=== PATIENT | female | born 1945 | race Caucasian/White ===

== ENCOUNTER 2019-07-07 07:51 | Emergency (ER) | payer MEDICARE, SELFPAY ==
--- NOTE | ~2019-07-07 | CT_ITS ---
EXAMINATION: CT lumbar spine [facility] EXAM DATE: 07/07/2019 08:50 INDICATION: Fall, low back pain. TECHNIQUE: Spiral CT lumbar spine was performed without contrast. Axial, coronal and sagittal images were reviewed. The dose-length product (DLP) for this examination was 1446.43 mGy-cm. The exposure was tailored according to patient size (auto mA exposure control), and iterative reconstruction (ASIR ) was used as additional dose reduction technique. There is no prior study for comparison. FINDINGS: There is mild to moderate loss of the L1 vertebral body height anteriorly, mild loss import coordination and production head iorly, burst fracture without retropulsion which could be acute or have acute component, although no paraspinal soft tissue findings. The other lumbar vertebral body heights are relatively well-maintain ed. There is moderate disc disease L2-3, L4-5 and L5-S1, mild to moderate at L3-4. There is advanced lower lumbar facet arthropathy. Sacrum, sacroiliac joints are intact. Moderate neural foraminal steno sis at lower lumbar levels. IMPRESSION: 1. L1 mild to moderate burst fracture, could have acute or subacute component to it. No retropulsion . 2. Overall moderate lumbar spondylosis. Reviewed, dictated and finalized at location B. AL STAFF WORKER IMPRESSION: 1. L1 mild to moderate burst fracture, could have acute or subacute component to it. No retropulsion. 2. Overall moderate lumbar spondylosis.
--- NOTE | ~2019-07-07 | CT_ITS ---
EXAMINATION: CT brain wo con DATE: 07/07/2019 08:50 INDICATION: Head injury. TECHNIQUE: Computed tomography (CT) of the head was performed without intravenous contrast. The mA wa s adjusted according to patient size. Iterative reconstruction technique was employed. The dose-lengt h product was 605.33 mGy-cm. COMPARISON: Head CT 04/22/2017 FINDINGS: There are old lacunar infarcts involving the right internal capsule and bilateral basal porsha glia. There are scattered areas of low attenuation in the cerebral white matter. There is no intracra nial hemorrhage, acute infarction, or abnormal intracranial mass lesion. The ventricles are normal in size. There is mild mucosal thickening in the paranasal sinuses. The mastoid air cells are normal. T here are likely changes of ocular lens replacement surgeries. IMPRESSION: 1. Old lacunar infarcts involving the right internal capsule and bilateral basal ganglia. 2. Unchanged extensive nonspecific cerebral white matter disease, which likely represents chronic sma ll vessel ischemic disease. Reviewed, dictated and finalized at location A. PILOT/NAVIGATOR/DDS OPERATOR IMPRESSION: 1. Old lacunar infarcts involving the right internal capsule and bilateral basa l ganglia. 2. Unchanged extensive nonspecific cerebral white matter disease, which likely represents chronic small vessel ischemic disease.
[2019-07-07 07:51] VITALS: BP 123/82; PULSE 87; RESP 13; TEMP 36.4; O2SAT 94
--- NOTE | 2019-07-07 08:29 | ED.FALL ---
HPI - Fall General Chief Complaint: Fall <Monika Cross PA-C - Last Filed: 07/07/19 08:33> Stated Complaint: fall <ENRRIQUE Adan Last Filed: 07/07/19 08:33> Time Seen by Provider: 07/07/19 08:08 <Monika Cross PA-C - Last Filed: 07/07/19 08:33> Source: patient <ENRRIQUE Adan Last Filed: 07/07/19 08:33> Mode of arrival: EMS <ENRRIQUE Adan Last Filed: 07/07/19 08:33> Limitations: no limitations <ENRRIQUE Adan Last Filed: 07/07/19 08:33> History of Present Illness HPI Narrative: This is a 73-year-old female that presents the emergency department after a fall today. Reports she was getting up to go to the restroom and lost her balance and fell backwards onto her bottom. Reports since she has had low back pain. Also reports hitting her head on a cabinet. Denies any loss of consciousness. Denies any other injuries. Denies prodromal symptoms, chest pain, shortness of breath, vision changes, vomiting, numbness or weakness. <ENRRIQUE Adan Last Filed: 07/07/19 08:33> Related Data Home Medications: Home Medications Medication Instructions Recorded Confirmed albuterol sulfate 0.63 mg/3 mL 0.63 mg INHALATION Q4-6H PRN 04/12/19 solution for nebulization albuterol sulfate 90 mcg/actuation 1 puff INHALATION Q4H PRN 04/12/19 aerosol inhaler duloxetine 60 mg capsule,delayed 60 mg PO DAILY 04/12/19 release pantoprazole 40 mg tablet,delayed 40 mg PO QAM 04/12/19 release tiotropium bromide 2.5 2 puff INHALATION DAILY 04/12/19 mcg/actuation mist for inhalation azelastine 137 mcg (0.1 %) nasal 1 spray NASAL Q12H 05/10/19 spray aerosol fluticasone furoate 200 1 inhalation INHALATION DAILY 05/10/19 mcg-vilanterol 25 mcg/dose inhalation powder hydrocodone 5 mg-acetaminophen 325 1 tablet PO Q8H PRN 05/10/19 mg tablet zolpidem 10 mg tablet 10 mg PO .QHS tablet 05/10/19 <Monika Cross PA-C - Last Filed: 07/07/19 08:33> Allergies/Adverse Reactions: Allergies Allergy/AdvReac Type Severity Reaction Status Date / Time adhesive Allergy Unknown Unknown Verified 07/07/19 08:01 aspirin Allergy Unknown Unknown Verified 07/07/19 08:01 morphine Allergy Unknown Unknown Verified 07/07/19 08:01 naproxen Allergy Unknown Unknown Verified 07/07/19 08:01 Sulfa (Sulfonamide Allergy Unknown Rash Verified 07/07/19 08:01 Antibiotics) sulfanilamide Allergy Unknown Rash Verified 05/10/19 10:14 aspirin Allergy Unknown Unknown Uncoded 05/10/19 10:14 cilantro Allergy Unknown Unknown Uncoded 07/07/19 08:01 naproxen Allergy Unknown Unknown Uncoded 07/07/19 08:01 <Monika Cross PA-C - Last Filed: 07/07/19 08:33> Review of Systems Review of Systems: Narrative: CONSTITUTIONAL: Denies fever EYES: Denies visual changes CARDIOVASCULAR: Denies chest pain RESPIRATORY: Denies dyspnea. GASTROINTESTINAL: Denies vomiting MUSCULOSKELETAL: Reports back pain, joint pain, and myalgia. NEUROLOGIC: Denies headache, numbness, or weakness. <Monika Cross PA-C - Last Filed: 07/07/19 08:33> All systems reviewed & are unremarkable except as noted in HPI and below <Monika Cross PA-C - Last Filed: 07/07/19 08:33> [facility] Past Medical History Medical History: Medical History (Updated 07/07/19 @ 08:30 by Monika Cross PA-C) History of asthma History of diabetes mellitus History of hyperlipidemia History of hypertension <Monika Cross PA-C - Last Filed: 07/07/19 08:33> Social History Social History: Social History Smoking status: Never smoker Alcohol intake: never Gender identity (if verbalized by the patient): Female <Monika Cross PA-C - Last Filed: 07/07/19 08:33> Exam Narrative: Exam Narrative: GENERAL: Well-appearing, obese, and in no acute distress. HEAD: Normocephalic, atraumatic. EYES: PERRLA and EOMI. ENT: Nares clear, no rhin
--- NOTE | 2019-07-07 09:51 | PCCCNOTE ---
Pt has multiple falls in the recent past and is now in the ED with a burst fracture. Expressed interest in receiving information about Assisted Living facilities in the area. Spoke with patient and son and provided our list of Assisted Living facilities in this area. Patient is also interested in facilities in the [place], [place] area. Suggested patient and son consider what amenities are important to them and to tour facilities of their choice with those amenities in mind.
[2019-07-07 10:28] VITALS: BP 143/99; PULSE 98; RESP 17; O2SAT 96
[2019-07-07 11:56] VITALS: BP 136/57; PULSE 104; RESP 19; O2SAT 94
--- NOTE | 2019-07-07 12:16 | PCCCNOTE ---
Pt transferring to [facility] for higher level of care. Son of patient was able to use patient's 2019 insurance card to call and confirm that [facility] is in the patient's network. Advised patient to also confirm that the neurosurgeon is in her network. Currently we only have the patient's 2019 insurance card. Asked patient (and charge nurse) to request that registration sssscan current insurance card into our system.
== END 2019-07-07 12:26 | disposition short-term general hospital (02) ==
LOC: ANHED 08:55
PROVIDERS: Emergency Provider Emergency Medicine; PCP Family Medicine
DX: S32.011A Stable burst fracture of first lumbar vertebra, initial encounter for closed fracture (principal); J45.909 Unspecified asthma, uncomplicated; E11.9 Type 2 diabetes mellitus without complications; E78.5 Hyperlipidemia, unspecified; I10 Essential (primary) hypertension; W18.39XA Other fall on same level, initial encounter
CPT/HCPCS: 70450; 72131; 96374; 99285; A9270; J3360

== ENCOUNTER 2019-07-17 15:02 | Observation (INO) | payer MEDICARE, SELFPAY ==
--- NOTE | ~2019-07-17 | CT_ITS ---
EXAMINATION: CT brain wo con DATE: 07/17/2019 17:12 INDICATION: Fall with left-sided head injury TECHNIQUE: Computed tomography (CT) of the head was performed without intravenous contrast. Sagittal and coronal reconstructions were performed. The mA was adjusted according to patient size. Iterative reconstruction technique was employed. The dose-length product was 605.33 mGy-cm. COMPARISON: head CT dated 07/07/19 FINDINGS: No fracture. Unchanged old lacunar infarcts involving the right internal capsule and bilateral basal ganglia. No acute intracranial hemorrhage, acute infarction or abnormal extra axial fluid collection. Symmetric prominence of the sulci and ventricles consistent with mild age-appropriate diffuse cerebr al volume loss. No mass/mass effect. Unchanged extensive scattered white matter hypoattenuation consi stent with chronic small vessel ischemic disease. Mild mucosal thickening throughout the paranasal si nuses. Changes of bilateral intraocular lens replacement. The orbits and mastoid air cells are meagan l. Intracranial calcified cerebral atherosclerosis is noted. IMPRESSION: 1. No fracture or acute intracranial process. 2. Old lacunar infarcts involving the right internal capsule and bilateral basal ganglia. 3. Age-related changes including mild diffuse volume loss and unchanged extensive nonspecific cerebra l white matter hypoattenuation consistent with chronic small vessel ischemic disease. Reviewed, dictated and finalized at location A. BILITATION TEACHER IMPRESSION: 1. No fracture or acute intracranial process. 2. Old lacunar infarcts involving the right internal capsule and bilateral basa l ganglia. 3. Age-related changes including mild diffuse volume loss and unchanged extensi ve nonspecific cerebral white matter hypoattenuation consistent with chronic sm all vessel ischemic disease.
--- NOTE | ~2019-07-17 | CT_ITS ---
EXAMINATION: CT cervical spine wo con DATE: 07/17/2019 17:12 INDICATION: Fall with left-sided head injury. Unsteady gait. TECHNIQUE: Computed tomography (CT) of the cervical spine was performed without intravenous contrast. Automated exposure control and iterative reconstruction technique were employed. The dose-length pro duct was 519.75 mGy-cm. COMPARISON: None FINDINGS: Mild quantum mottle in the lower cervical spine due to patient body habitus which mildly limits evalu ation of fine bone detail. Straightening of the normal cervical lordosis. 1 mm anterolisthesis C3 on C4. Vertebral body heights are normal. No acute fracture. Moderate disc height loss with severe bilat eral uncovertebral osteoarthritis at C4-C5 and C5-C6. Severe multilevel cervical facet osteoarthritis , left greater than right. Atherosclerotic calcifications at the bilateral carotid bulbs and bilatera l intracranial vertebral arteries. Cervical soft tissues are otherwise unremarkable. Visualized porti on of the airway and apices of lungs are clear. IMPRESSION: 1. Moderate cervical spondylosis. No acute osseous abnormality. Reviewed, dictated and finalized at location A. AL LATHE OPERATOR
--- NOTE | ~2019-07-17 | XR_ITS ---
EXAMINATION: XR shoulder RT min 2V DATE: 07/17/2019 17:08 INDICATION: Right shoulder pain post fall TECHNIQUE: AP internally and externally rotated, AP oblique externally rotated and transscapular Y vi ews of the right shoulder were obtained. COMPARISON: Right humerus radiographs dated between 11/11/2017 and 06/16/2018 FINDINGS: Again seen is prominent nonbridging callus formation at a chronic nonunited proximal right humeral di aphyseal fracture. The alignment of the proximal and distal fragments has varied on the prior radiogr aphs, now with greater degree of posterior angulation and with slight increase in approximately two t hirds anterior displacement. No new fractures identified. Normal alignment at the right glenohumeral and acromioclavicular joints with mild osteoarthritis at the former and moderate osteoarthritis at th e latter. Moderate to severe cervical spondylosis. Visualized portions of the right lung are clear. IMPRESSION: 1. Mild interval change in position of a chronic nonunited fracture at the proximal right humeral elan physis. 2. 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 Reviewed, dictated and finalized at location A. TER IMPRESSION: 1. Mild interval change in position of a chronic nonunited fracture at the prox imal right humeral diaphysis. 2. 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
--- NOTE | ~2019-07-17 | XR_ITS ---
EXAMINATION: XR chest 2V, XR abdomen/kub 1V DATE: 07/17/2019 17:08 INDICATION: Cough. Constipation. TECHNIQUE: 1. frontal and supine crosstable lateral views of the chest were obtained. 2. Supine frontal view of the abdomen and pelvis was obtained on 3 radiographs. COMPARISON: Chest radiograph dated 05/18/2017 FINDINGS: CHEST: The lungs remain clear with no focal airspace opacities, pulmonary edema, pleural effusion or pneumot horax. Cardiomegaly. Dense mitral annular calcifications. Costochondral calcific lesions project over the bilateral lower lung zones. KUB: Cholecystectomy clips in right upper quadrant. Moderate amount of gas and stool scattered throughout the colon. No dilated gas-filled loops of bowel to suggest obstruction. Calcified uterine fibroid in the central pelvis. Mild vertebral body height loss at L2 corresponding to the likely subacute burst fractures seen on CT dated 07/07/2019. IMPRESSION: 1. Cardiomegaly. No acute cardiopulmonary disease. 2. Moderate amount of colonic stool consistent with given history of constipation. No dilated bowel t o suggest obstruction. 3. Likely subacute burst fracture with mild vertebral body height loss as seen on recent CT dated 06/10. Reviewed, dictated and finalized at location A. RY CARE DIRECTOR IMPRESSION: 1. Cardiomegaly. No acute cardiopulmonary disease. 2. Moderate amount of colonic stool consistent with given history of constipati on. No dilated bowel to suggest obstruction. 3. Likely subacute burst fracture with mild vertebral body height loss as seen on recent CT dated 07/07/2019.
[2019-07-17 15:09] VITALS: BP 133/67; PULSE 94; RESP 18; TEMP 36.5; O2SAT 99
--- NOTE | 2019-07-17 15:48 | ED.BACK ---
HPI - Back Pain/Injury General Chief Complaint: Back Pain/Injury Stated Complaint: fall Time Seen by Provider: 07/17/19 15:45 Source: patient Mode of arrival: EMS Limitations: no limitations History of Present Illness HPI Narrative: A 73 y/o female presents to the ED, via EMS, with c/o back pain secondary to a fall. Pt states that she has had four falls in the last 10 days. On 07/07/19 the patient fell while going to the bathroom and was brought to [place] ED. At that ED visit, she was diagnosed with a L1 compression fracture and was transferred to [facility]. At [facility] she was seen by a SUCKER MACHINE OPERATOR for Dr. Hanna. The patient notes that she had another fall on 07/13/19 and 07/14/19. For both of these falls, the patient called EMS to be assisted back up, but was not seen at an ED. Today the patient notes that she was using her walker to get into a chair, when she missed and feel off of the chair. The patient hit her head and fell on her right side, so she decided to come to the ED. Pt reports rt arm pain, constipation, decreased food intake, poor appetite, ABD bloating, and cough, but denies hip pain, fever, SOB, CP, ABD pain, and N/V. Her family states that she has not had a BM in the last [address] Bonilla is her lugger. She has a PMHx of asthma and vertigo. Pt is currently on Hydromorphone 2mg and has hallucinations when she is sleeping. MD elicited complaint: back pain Pertinent past history: prior back pain and recent trauma (L1 fracture) Onset (ago): hour(s) (Today) Timing: constant Context: fall Associated symptoms: other (rt arm pain, constipation, decreased food intake, poor appetite, ABD bloating, cough) Treatments prior to arrival: other medications (Hydromorphone 2mg) Related Data Home Medications Medication Instructions Recorded Confirmed albuterol sulfate 0.63 mg/3 mL 0.63 mg INHALATION Q4-6H PRN 04/12/19 solution for nebulization albuterol sulfate 90 mcg/actuation 1 puff INHALATION Q4H PRN 04/12/19 aerosol inhaler duloxetine 60 mg capsule,delayed 60 mg PO DAILY 04/12/19 release pantoprazole 40 mg tablet,delayed 40 mg PO QAM 04/12/19 release tiotropium bromide 2.5 2 puff INHALATION DAILY 04/12/19 mcg/actuation mist for inhalation azelastine 137 mcg (0.1 %) nasal 1 spray NASAL Q12H 05/10/19 spray aerosol fluticasone furoate 200 1 inhalation INHALATION DAILY 05/10/19 mcg-vilanterol 25 mcg/dose inhalation powder zolpidem 10 mg tablet 10 mg PO .QHS tablet 05/10/19 Allergies Allergy/AdvReac Type Severity Reaction Status Date / Time aspirin Allergy Unknown Unknown Verified 07/17/19 15:24 morphine Allergy Unknown Unknown Verified 07/17/19 15:24 naproxen Allergy Unknown Unknown Verified 07/17/19 15:24 Sulfa (Sulfonamide Allergy Unknown Rash Verified 07/17/19 15:24 Antibiotics) sulfanilamide Allergy Unknown Rash Verified 07/17/19 15:24 cilantro Allergy Unknown Unknown Uncoded 07/17/19 15:24 Review of Systems Review of Systems: All systems reviewed & are unremarkable except as noted in HPI and below Constitutional: Constitutional: Denies fever(s), Reports poor appetite and Reports other (Decreased food intake) Cardiovascular: Cardiovascular: Denies chest pain Respiratory: Respiratory: Reports cough and Denies dyspnea Gastrointestinal: Gastrointestinal: Denies abdominal pain, Reports bloating, Reports constipation, Denies nausea and Denies vomiting Musculoskeletal: Musculoskeletal: Reports back pain, Reports arthralgias (RIght arm) and Denies other (Hip pain) [facility] Past Medical History Medical History (Updated 07/17/19 @ 18:42 by Natalie Corey MD) Anxiety disorder, unspecified Aortic stenosis, moderate COPD with asthma Diastolic dysfunction Dyslipidemia Essential (primary) hypertension History of asthma History of diabetes mellitus History of hyperlipidemia History of hypertension Kidney disease, chronic, stage III (GFR 30-59 ml/min) Lumbar burst fracture Major depressive disor
[2019-07-17 16:43] LABS: Basophils Percent Auto 0.7 % (0.2-1.2); Eosinophils Absolute Auto 0.4 K/mm3 (0-0.3); Eosinophils Percent Auto 6.4 % (0-4.4); Hematocrit 35.3 % (37.0-47.0); Hemoglobin 11.9 g/dL (12.0-15.0); Immature Granulocyte Absolute 0.02 K/mm3 (0.00-0.031); Immature Granulocyte Percent A 0.3 % (0-0.5); Lymphocytes Absolute Auto 0.62 K/mm3 (0.9-3.2); Lymphocytes Percent Auto 10.5 % (18.3-44.2); Mean Corpuscular HGB Conc 33.7 g/dl (32-36); Mean Corpuscular Hemoglobin 30.9 pg (26-34); Mean Corpuscular Volume 91.7 fl (80-100); Mean Platelet Volume 10.5 fl (7.4-10.4); Monocytes Absolute Auto 0.5 K/mm3 (0.1-0.6); Monocytes Percent Auto 9.1 % (2.6-8.5); Neutrophils Absolute Auto 4.3 K/mm3 (1.3-6.7); Platelet Count Result 310 k/mm3 (150-375); Red Blood Count 3.85 M/mm3 (4.2-5.4); Red Cell Distribution Width 12.6 % (11.5-14.5); White Blood Count 5.9 K/mm3 (4.5-10.0)
[2019-07-17 16:52] LABS: Alanine Aminotransferase 19 U/L (4-35); Alkaline Phosphatase 104 U/L (38-126); Aspartate Amino Transferase 24 U/L (14-36); Bilirubin,Total 0.6 mg/dL (0.2-1.3); Blood Urea Nitrogen 40 mg/dL (7-17); Calcium 9.3 mg/dL (8.4-10.2); Carbon Dioxide 25 mmol/L (22-30); Chloride 96 mmol/L (98-107); Creatine Kinase 51 U/L (30-135); Estimated CRCL calculation 51 ml/min; Estimated Glomerular Filt Rate 44; Glucose 164 mg/dL (65-105); Sodium 137 mmol/L (137-145)
[2019-07-17 17:01] LABS: NT Pro B Type Natriuretic Pept 273 PG/ML (5-100)
--- NOTE | 2019-07-17 18:00 | PM.IMHP ---
H&P: HPI History of Present Illness Chief complaint: Fall. <Hoa Blanco PA-C - Last Filed: 07/18/19 02:57> Narrative: Sugey Roy is a pleasant 73-year-old female with multiple medical problems including morbid obesity, hypertension, diabetes, and COPD/asthma who presented to the emergency department earlier this afternoon via EMS from home for evaluation after a fall. On June 10, 2019 she had a ground level fall while ambulating to the bathroom, and was found to have an L1 burst fracture. She was transferred to [facility] and was evaluated by Dr. Hanna. She had no neurologic deficits and no intervention was undertaken. She was seen by her primary care provider the following day and follow-up and at that time reported that the Percocet did not seem to help much with the pain and that was causing hallucinations with sleeping. She was switched to hydromorphone, and has had some mild confusion with that as well, but not as significant. Since the fracture, she has been ambulating with a Rollator and she notes of fall on the evening of July 13 and the morning of July 14. She believes age fall occurred due to her miss calculating how far back her chair was sitting when backing her Rollator in to sit down. After that fall, she was seen again by her primary care provider at that time complained of ?violent spasms? in the lumbar region. She was then prescribed Celebrex and cyclobenzaprine which seemed to have helped. PT and home health were also ordered, but have not yet come to the house. Unfortunately, she fell again attempting to sit down in her recliner. She landed somewhat on her left side and did gently bumped her head on a tray table. She had no loss of consciousness with that. Her pain has not increased due to the fall, but she says the pain has been bad enough that she is not even wanted to get out of bed to eat or even go to the bathroom due to pain. She has been having issues with urinary incontinence for many years and this is unchanged. No bowel incontinence. No saddle anesthesias, paresthesias, or focal weakness in the lower limbs. <Hoa Blanco PA-C - Last Filed: 07/18/19 02:57> Review of Systems Review of Systems: Narrative: Twelve systems were reviewed with pertinent positives and negatives as per HPI. She has frequent sinus congestion and postnasal drip, which is unchanged. She has a mild cough that she attributes to the postnasal drip. No fever, chills, or sweats. She denies chest pain, pleuritic pain, palpitations, and shortness of breath. She has been constipated from the pain medications, and has not had a bowel movement for 4 days. Her appetite has been poor but she denies nausea and vomiting. She has mild right sided arm pain from a previous fall. That is also at the site of a previous humeral fracture that was treated nonsurgically. Except as documented, all other systems were reviewed and are negative. <Hoa Blanco PA-C - Last Filed: 07/18/19 02:57> [facility] Past Medical History Medical History: Medical History (Updated 07/18/19 @ 02:52 by Hoa Blanco PA-C) Anxiety disorder, unspecified Aortic stenosis, moderate COPD with asthma Diastolic dysfunction Dyslipidemia Essential (primary) hypertension History of asthma History of diabetes mellitus History of hyperlipidemia History of hypertension Kidney disease, chronic, stage III (GFR 30-59 ml/min) Lumbar burst fracture Major depressive disorder, single episode, unspecified Mixed hyperlipidemia Other intervertebral disc degeneration, lumbar region Status post open reduction with internal fixation of fracture Right lower leg with hardware. Type 2 diabetes mellitus without complications Vitamin D deficiency, unspecified <Hoa Blanco PA-C - Last Filed: 07/18/19 02:57> Surgical History Surgical History: Surgical History (Updated 07/18/19 @ 02:45 by Hoa Blanco PA-C) History of cardia
[2019-07-17 18:02] LABS: Add Urine Microscopic? YES; Appearance Urine Clear (Clear); Bacteria Urine Trace /hpf; Bilirubin Urine Negative (Negative); Blood Urine Negative (Negative); Color Urine Yellow (Yellow); Glucose Urine UA Negative (Negative); Ketones Urine Negative (Negative); Leukocyte Esterase Ur Negative LEU/UL (Negative); Mucus Urine Rare /lpf; Nitrate Urine Negative (Negative); Protein Urine Negative (Negative); Specific Grav Ur 1.014 (1.001-1.035); Squamous Epithelial Cell Urine Rare /hpf (Few); Urobilinogen Urine Negative mg/dL (<2.0); WBC Urine 0-3 /hpf
--- NOTE | 2019-07-17 19:38 | ADMGEN ---
This patient, Sugey Roy, was admitted to [facility] at 1930. Patient/family oriented to hospital policies and general routines including ID bracelet, bed and alarms, visiting hours, pain management, procedures, bathroom and other care routines, personal items, smoking policy, room service/diet, and visiting hours. Valuables list has been completed. Information on how to activate the Rapid Response Team has been discussed. Patient/Family are encouraged to report perceived risks to care and to ask questions if they do not understand what they are told or what they should do.
[2019-07-17] MEDS: SODIUM CHLORIDE 0.9% IV 1,000 ML 125 ML IV CONT (20:54)
[2019-07-17 22:00] VITALS: BP 119/63; PULSE 97; RESP 14; TEMP 36.3; O2SAT 96
[2019-07-17 22:19] VITALS: BMI 53.8
[2019-07-18] MEDS: HYDROMORPHONE HCL 2 MG TABLET PO ×4 (00:01→17:34)
[2019-07-18] MEDS: ALPRAZOLAM 0.5 MG TABLET PO ×2 (00:03→20:40)
[2019-07-18] MEDS: INSULIN DETEMIR 100 UNITS/ML 15 UNITS SUB-Q ×2 (00:12→20:41)
[2019-07-18 00:40] LABS: Glucose Point of Care 189 (65-105)
[2019-07-18] MEDS: AZELASTINE HCL NASAL 0.1% 137 MCG/SPR 30 ML BTL 1 SPRAY NASAL ×3 (01:34→20:40)
--- NOTE | 2019-07-18 04:43 | PC.NURSE ---
02/16/2020 pt 2mg dilaudid was scanned at the same time as pt one time xanax. The dilaudid did not record on the AUG. I had to manually document the drug administration.
[2019-07-18] MEDS: SODIUM CHLORIDE 0.9% IV 1,000 ML 125 ML IV CONT (05:20)
[2019-07-18 06:00] VITALS: BP 134/70; PULSE 95; RESP 16; TEMP 36.3; O2SAT 92
[2019-07-18] MEDS: polyethylene glycoL 3350 17 GM POWD.PACK PO (08:41)
[2019-07-18] MEDS: MONTELUKAST SODIUM 10 MG TABLET PO (08:42)
[2019-07-18] MEDS: PANTOPRAZOLE 40 MG TABLET PO (08:42)
[2019-07-18] MEDS: buPROPion HCL SR (12HR) 100 MG TABCR PO ×2 (08:42→17:31)
[2019-07-18] MEDS: DULOXETINE 60 MG CAPSULE.DR PO (08:42)
[2019-07-18] MEDS: GABAPENTIN 300 MG CAPSULE PO ×2 (08:43→17:30)
[2019-07-18] MEDS: CYCLOBENZAPRINE HCL 10 MG TABLET PO ×3 (08:43→17:30)
[2019-07-18] MEDS: FLUTICASONE PROPIONATE 0.05% NA SPR 16 GM BTL (*BKC) 1 SPRAY NASAL ×2 (08:43→17:30)
[2019-07-18 09:32] LABS: Glucose Point of Care 147 (65-105)
[2019-07-18 12:43] LABS: Glucose Point of Care 164 (65-105)
[2019-07-18 14:00] VITALS: BP 133/69; PULSE 96; RESP 16; TEMP 36; O2SAT 100
[2019-07-18] MEDS: SODIUM CHLORIDE 0.9% IV 1,000 ML 100 ML IV CONT ×2 (14:39→23:58)
--- NOTE | 2019-07-18 15:04 | PCCCNOTE ---
On 07/18/19, the student, [Shakira Key ], provided care and completed [facility]. I have reviewed the student's documentation and agree with the findings.
[2019-07-18] MEDS: LOVASTATIN 20 MG TABLET 40 MG PO (17:30)
[2019-07-18 17:47] LABS: Glucose Point of Care 187 (65-105)
--- NOTE | 2019-07-18 18:04 | PC.NURSE ---
On 07/18/19, the graduate nurse, Isaac Stone RN, provided care and completed [facility] documentation on this patient. I have reviewed the student's documentation and agree with the findings.
--- NOTE | 2019-07-18 18:27 | PM.IMPN ---
Progress Note: A&P Assessment and Plan (1) Recurrent falls while walking: Code(s): R29.6 - Repeated falls Status: Acute Assessment and Plan: Pain, morbesity, medications, deconditioning all contributors PT/OT consulted. Initiate fall precautions. She will need rehab on discharge. (2) Dehydration: Code(s): E86.0 - Dehydration Status: Acute Assessment and Plan: Due to recent poor oral intake, given the ability that she is having hard time even getting up and about. She will receive cautious IV fluid rehydration. 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 Initiate sliding scale insulin, Accu-Cheks, and hypoglycemic protocol. (4) History of hypertension: Code(s): Z86.79 - Personal history of other diseases of the circulatory system Status: Acute Assessment and Plan: Blood pressures were reviewed and they seem to be well controlled. Continue antihypertensives and monitor daily. (5) COPD with asthma: Code(s): J44.9 - Chronic obstructive pulmonary disease, unspecified Status: Acute Assessment and Plan: No acute issues. Continue home respiratory regimen. (6) Closed compression fracture of L1 vertebra: Qualifiers: Encounter type: sequela Qualified Code(s): S32.010S - Wedge compression fracture of first lumbar vertebra, sequela Code(s): S32.010A - Wedge compression fracture of first lumbar vertebra, initial encounter for closed fracture Status: Acute Assessment and Plan: Recent L1 lumbar fracture Continue hydromorphone and cyclobenzaprine as needed. Celebrex is on hold given increasing creatinine. PT/OT consulted. Subjective Date/time seen: 07/18/19 18:27 Interval history: Admitted 07/17 due to fall at home. Back pain only with movement. No cp or sob or edema. No gi/gu c/o. No bleeding. Review of Systems Review of Systems: All systems reviewed & are unremarkable except as noted in HPI and below Exam Narrative: Exam Narrative: General: Well-developed, very well-nourished morbidly obese female supine in bed in no acute distress. HEENT: Normocephalic, atraumatic. PERRL, EOMI. Sclerae anicteric. Oral mucosa tacky. Oropharynx clear. Neck: Supple. Respiratory: Lungs are clear to auscultation bilaterally. Cardiovascular: Regular rate and rhythm with S1-S2. 2/6 soft systolic murmur best heard at the upper sternal border. Gastrointestinal: Abdomen is soft, morbidly obese, nontender, and nondistended with positive bowel sounds. Skin: Warm and dry. There is a bruise on the lateral aspect of the right upper arm and on the underside of the left upper arm. Extremities: No cyanosis, clubbing, or significant edema. . Neurological: Alert. Cranial nerves 2-12 are grossly intact. No gross focal deficits Psychiatric: Pleasant and cooperative with normal mood and affect. Judgment and insight intact. Objective Data Vital Signs Vital Signs: Vital Signs - 24 hr 07/17/19 22:00 07/18/19 06:00 07/18/19 14:00 Temperature 97.3 F L 97.3 F L 96.8 F L Pulse Rate 97 95 96 Respiratory Rate 14 16 16 Blood Pressure 119/63 134/70 133/69 Pulse Oximetry 96 92 100 Intake/Output Intake/Output: Intake & Output 07/15/19 07/16/19 07/17/19 07/18/19 23:59 23:59 23:59 23:59 Intake Total 2851 Output Total 400 1000 Balance -400 1851 Meds/Results Medications: Active Medications Generic Name Dose Route Start Last Admin Trade Name Freq PRN Reason Stop Dose Admin Albuterol 2.5 mg 07/18/19 08:01 Albuterol Sulf Neb 2.5mg/0.5ml INHAL
[2019-07-18 20:54] LABS: Glucose Point of Care 265 (65-105)
[2019-07-18 21:38] VITALS: BP 134/67; PULSE 98; RESP 20; TEMP 36.3; O2SAT 97
[2019-07-19 06:00] VITALS: BP 146/85; PULSE 95; RESP 22; TEMP 36.4; O2SAT 95
[2019-07-19 06:07] LABS: Hematocrit 35.4 % (37.0-47.0); Hemoglobin 11.7 g/dL (12.0-15.0); Mean Corpuscular HGB Conc 33.1 g/dl (32-36); Mean Corpuscular Hemoglobin 30.6 pg (26-34); Mean Corpuscular Volume 92.7 fl (80-100); Mean Platelet Volume 10.8 fl (7.4-10.4); Platelet Count Result 306 k/mm3 (150-375); Red Blood Count 3.82 M/mm3 (4.2-5.4); Red Cell Distribution Width 12.7 % (11.5-14.5); White Blood Count 4.9 K/mm3 (4.5-10.0)
[2019-07-19 06:26] LABS: Blood Urea Nitrogen 19 mg/dL (7-17); Calcium 8.9 mg/dL (8.4-10.2); Carbon Dioxide 28 mmol/L (22-30); Chloride 98 mmol/L (98-107); Estimated CRCL calculation 92 ml/min; Estimated Glomerular Filt Rate > 60; Glucose 151 mg/dL (65-105); Potassium 3.6 mmol/L (3.4-5.0); Sodium 139 mmol/L (137-145)
[2019-07-19] MEDS: HYDROMORPHONE HCL 2 MG TABLET PO ×3 (08:35→19:12)
[2019-07-19] MEDS: AZELASTINE HCL NASAL 0.1% 137 MCG/SPR 30 ML BTL 1 SPRAY NASAL ×2 (08:36→21:41)
[2019-07-19] MEDS: FLUTICASONE PROPIONATE 0.05% NA SPR 16 GM BTL (*BKC) 1 SPRAY NASAL ×2 (08:37→16:53)
[2019-07-19] MEDS: DULOXETINE 60 MG CAPSULE.DR PO (08:37)
[2019-07-19] MEDS: CYCLOBENZAPRINE HCL 10 MG TABLET PO ×3 (08:37→16:53)
[2019-07-19] MEDS: buPROPion HCL SR (12HR) 100 MG TABCR PO ×2 (08:37→16:54)
[2019-07-19] MEDS: GABAPENTIN 300 MG CAPSULE PO ×2 (08:37→16:53)
[2019-07-19] MEDS: polyethylene glycoL 3350 17 GM POWD.PACK PO (08:38)
[2019-07-19] MEDS: MONTELUKAST SODIUM 10 MG TABLET PO (08:38)
[2019-07-19] MEDS: PANTOPRAZOLE 40 MG TABLET PO (08:38)
[2019-07-19 08:44] LABS: Glucose Point of Care 157 (65-105)
[2019-07-19] MEDS: BISACODYL 5 MG TABLET EC 10 MG PO (09:16)
[2019-07-19] MEDS: polyethylene glycoL 3350 17 GM POWD.PACK 68 GM PO (09:16)
[2019-07-19] MEDS: SODIUM CHLORIDE 0.9% IV 1,000 ML 100 ML IV CONT ×2 (12:41→21:28)
[2019-07-19 13:03] LABS: Glucose Point of Care 179 (65-105)
--- NOTE | 2019-07-19 13:28 | PCOTNOTE ---
Pt refused skilled OT this date. Pt stated she is feeling worse today and didnt want any therapy today.
[2019-07-19 14:00] VITALS: BP 151/74; PULSE 103; RESP 16; TEMP 36.9; O2SAT 97
--- NOTE | 2019-07-19 16:24 | PM.IMPN ---
Progress Note: A&P Assessment and Plan (1) Recurrent falls while walking: Code(s): R29.6 - Repeated falls Status: Acute Assessment and Plan: Pain, morbesity, medications, deconditioning all contributors PT/OT working with Initiated fall precautions. She will need rehab on discharge. (2) Dehydration: Code(s): E86.0 - Dehydration Status: Acute Assessment and Plan: Due to recent poor oral intake, given the ability that she is having hard time even getting up and about. She will receive cautious IV fluid rehydration. 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 Initiate sliding scale insulin, Accu-Cheks, and hypoglycemic protocol. (4) History of hypertension: Code(s): Z86.79 - Personal history of other diseases of the circulatory system Status: Acute Assessment and Plan: Blood pressures were reviewed and they seem to be well controlled. Continue antihypertensives and monitor daily still slightly elevated today continue to monitor. (5) COPD with asthma: Code(s): J44.9 - Chronic obstructive pulmonary disease, unspecified Status: Acute Assessment and Plan: No acute issues. Continue home respiratory regimen. (6) Closed compression fracture of L1 vertebra: Qualifiers: Encounter type: sequela Qualified Code(s): S32.010S - Wedge compression fracture of first lumbar vertebra, sequela Code(s): S32.010A - Wedge compression fracture of first lumbar vertebra, initial encounter for closed fracture Status: Acute Assessment and Plan: Recent L1 lumbar fracture Continue hydromorphone and cyclobenzaprine as needed. Celebrex is on hold given increasing creatinine. PT/OT consulted. Constipation secondary to immobility and narcotics.. Increase laxatives today Subjective Date/time seen: 07/19/19 16:24 Interval history: Admitted 07/17 due to fall at home. Back pain only with movement. No cp or sob or edema. No gi/gu c/o. other than constipation No bleeding. Exam Narrative: Exam Narrative: Blood pressure 146/84 pulse is 94 saturating 95% room air General: Well-developed, very well-nourished morbidly obese female supine in bed in no acute distress. HEENT: . Sclerae anicteric. Neck: Supple. Respiratory: Lungs are clear to auscultation bilaterally. Cardiovascular: Regular rate and rhythm with S1-S2. 2/6 soft systolic murmur best heard at the upper sternal border. Gastrointestinal: Abdomen is soft, morbidly obese, nontender, and nondistended with positive bowel sounds. Skin: Warm and dry. . Extremities: No cyanosis, clubbing, or significant edema. . Neurological: Alert. Cranial nerves 2-12 are grossly intact. No gross focal deficits Objective Data Vital Signs Vital Signs: Vital Signs - 24 hr 07/18/19 21:38 07/19/19 06:00 Temperature 36.3 C L 36.4 C Pulse Rate 98 95 Respiratory Rate 20 22 H Blood Pressure 134/67 146/85 H Pulse Oximetry 97 95 Intake/Output Intake/Output: Intake & Output 07/16/19 07/17/19 07/18/19 07/19/19 23:59 23:59 23:59 23:59 Intake Total 3920 1550 Output Total 400 1000 550 Balance -400 2920 1000 Meds/Results Medications: Active Medications Generic Name Dose Route Start Last Admin Trade Name Freq PRN Reason Stop Dose Admin Albuterol 2.5 mg 07/18/19 08:01 Albuterol Sulf Neb 2.5mg/0.5ml INHALATION Q4-6H PRN Wheezing Alprazolam 0.5 mg 07/18/19 21:00 07/18/19 20:40 Xanax PO 0.5 mg HS YUMIKO Administra
[2019-07-19] MEDS: LOVASTATIN 20 MG TABLET 40 MG PO (17:00)
[2019-07-19 17:04] LABS: Glucose Point of Care 161 (65-105)
--- NOTE | 2019-07-19 18:34 | PC.NURSE ---
On 07/19/19, the manuel Stone RN, provided care and completed [facility] on this patient. I have reviewed the student's documentation and agree with the findings.
[2019-07-19] MEDS: ALPRAZOLAM 0.5 MG TABLET PO (21:42)
[2019-07-19] MEDS: BENZOCAINE/MENTHOL (*BKC) 18 EA LOZENGE 1 LOZENGE PO (21:45)
[2019-07-19] MEDS: INSULIN DETEMIR 100 UNITS/ML 15 UNITS SUB-Q (21:46)
[2019-07-19 22:00] VITALS: BP 125/83; PULSE 105; RESP 22; TEMP 36.6; O2SAT 95
[2019-07-20 02:56] LABS: Glucose Point of Care 211 (65-105)
[2019-07-20 06:00] VITALS: BP 135/70; PULSE 89; RESP 20; TEMP 36.6; O2SAT 98
[2019-07-20 07:41] LABS: Glucose Point of Care 123 (65-105)
[2019-07-20] MEDS: AZELASTINE HCL NASAL 0.1% 137 MCG/SPR 30 ML BTL 1 SPRAY NASAL ×2 (07:53→22:03)
[2019-07-20] MEDS: BENZOCAINE/MENTHOL (*BKC) 18 EA LOZENGE 1 LOZENGE PO ×2 (07:53→11:12)
[2019-07-20] MEDS: CYCLOBENZAPRINE HCL 10 MG TABLET PO ×3 (07:54→17:14)
[2019-07-20] MEDS: DULOXETINE 60 MG CAPSULE.DR PO (07:54)
[2019-07-20] MEDS: GABAPENTIN 300 MG CAPSULE PO ×2 (07:54→18:14)
[2019-07-20] MEDS: FLUTICASONE PROPIONATE 0.05% NA SPR 16 GM BTL (*BKC) 1 SPRAY NASAL ×2 (07:54→17:14)
[2019-07-20] MEDS: PANTOPRAZOLE 40 MG TABLET PO (07:54)
[2019-07-20] MEDS: MONTELUKAST SODIUM 10 MG TABLET PO (07:54)
[2019-07-20] MEDS: buPROPion HCL SR (12HR) 100 MG TABCR PO ×2 (07:54→18:14)
[2019-07-20 08:05] VITALS: O2SAT 95
--- NOTE | 2019-07-20 09:37 | PCPTNOTE ---
Attempted therapy, Patient declined treatment at this time due to her stomach being upset. She state she would be willing to try later on in the day if she is feeling better.
[2019-07-20] MEDS: BISMUTH SUBSALICYLATE 262 MG CHEWABLE TABLET 524 MG PO (11:11)
[2019-07-20] MEDS: HYDROMORPHONE HCL 2 MG TABLET PO ×2 (11:15→17:14)
--- NOTE | 2019-07-20 11:25 | PM.IMPN ---
Progress Note: A&P Assessment and Plan (1) Recurrent falls while walking: Code(s): R29.6 - Repeated falls Status: Acute Assessment and Plan: Pain, morbesity, medications, deconditioning all contributors PT/OT working with Initiated fall precautions. She will need rehab on discharge. (2) Dehydration: Code(s): E86.0 - Dehydration Status: Acute Assessment and Plan: Due to recent poor oral intake, given the ability that she is having hard time even getting up and about. She will receive cautious IV fluid rehydration. And as BUN down to 19 07/19 and discontinued IV fluids (3) Type 2 diabetes mellitus without complications: Qualifiers: Diabetes mellitus halfway insulin use: unspecified halfway insulin use status Qualified Code(s): E11.9 - Type 2 diabetes mellitus without complications Code(s): E11.9 - Type 2 diabetes mellitus without complications Status: Acute Assessment and Plan: Continue basal insulin. Initiate sliding scale insulin, Accu-Cheks, and hypoglycemic protocol. (4) History of hypertension: Code(s): Z86.79 - Personal history of other diseases of the circulatory system Status: Acute Assessment and Plan: Blood pressures were reviewed and they seem to be well controlled. on no antihypertensives at present time and will restart losartan (5) COPD with asthma: Code(s): J44.9 - Chronic obstructive pulmonary disease, unspecified Status: Acute Assessment and Plan: No acute issues. Continue home respiratory regimen. Of inhalers (6) Closed compression fracture of L1 vertebra: Qualifiers: Encounter type: sequela Qualified Code(s): S32.010S - Wedge compression fracture of first lumbar vertebra, sequela Code(s): S32.010A - Wedge compression fracture of first lumbar vertebra, initial encounter for closed fracture Status: Acute Assessment and Plan: Recent L1 lumbar fracture Continue hydromorphone and cyclobenzaprine as needed. Celebrex is on hold given increasing creatinine. PT/OT consulted. Constipation secondary to immobility and narcotics.. Continue MiraLax daily (7) DVT prophylaxis: Code(s): Z29.9 - Encounter for prophylactic measures, unspecified Status: Acute Assessment and Plan: start lovenox Subjective Date/time seen: 07/20/19 11:25 Interval history: Date of visit 07/20. Admitted 07/17 due to fall at home. Back pain only with movement. No cp or sob or edema. No gi/gu c/o. Large bms after laxative 07/19 No bleeding. Exam Narrative: Exam Narrative: Blood pressure 134/70 pulse is 86 saturating 95% room air General: Well-developed, very well-nourished morbidly obese female supine in recliner in no acute distress. HEENT: . Sclerae anicteric. Neck: Supple. Respiratory: Lungs are clear to auscultation bilaterally. Cardiovascular: Regular rate and rhythm with S1-S2. 2/6 soft systolic murmur best heard at the upper sternal border. Gastrointestinal: Abdomen is soft, morbidly obese, nontender, and nondistended with positive bowel sounds. Skin: Warm and dry. . Extremities: No cyanosis, clubbing, or significant edema. . Neurological: Alert. Cranial nerves 2-12 are grossly intact. No gross focal deficits Objective Data Vital Signs Vital Signs: Vital Signs - 24 hr 07/19/19 14:00 07/19/19 22:00 07/20/19 06:00 Temperature 36.9 C 36.6 C 36.6 C Pulse Rate 103 H 105 H 89 Respiratory Rate 16 22 H 20 Blood Pressure 151/74 H 125/83 135/70 Pulse Oximetry 97 95 98 07/20/19 08:05 Temperature Pulse Rate Respiratory Rate Blood Pressure Pulse Oximetry 95 Intake/Output Intake/Output: Intake & Output 07/17/19 07/18/19 07/19/19 07/20/19 23:59 23:59 23:59 23:59 Intake Total 3920 3290 350 Output Total 400 1000 2150 300 Balance -400 2920 1140 50 Meds/Results Medications: Active M
[2019-07-20] MEDS: LOSARTAN POTASSIUM 50 MG TABLET PO (13:17)
[2019-07-20 13:54] LABS: Glucose Point of Care 161 (65-105)
[2019-07-20 14:00] VITALS: BP 128/84; PULSE 106; RESP 16; TEMP 36.3; O2SAT 96
--- NOTE | 2019-07-20 15:53 | PCCCNOTE ---
On 07/20/19, the student, [Shakira Key ], provided care and completed [facility] patient. I have reviewed the student's documentation and agree with the findings.
[2019-07-20 17:18] LABS: Glucose Point of Care 176 (65-105)
[2019-07-20] MEDS: LOVASTATIN 20 MG TABLET 40 MG PO (18:15)
[2019-07-20 19:35] VITALS: PULSE 105; RESP 20; O2SAT 94
[2019-07-20 22:00] VITALS: BP 123/77; PULSE 100; RESP 20; TEMP 36.4; O2SAT 97
[2019-07-20] MEDS: ALPRAZOLAM 0.5 MG TABLET PO (22:01)
[2019-07-20] MEDS: ENOXAPARIN 40 MG/0.4 ML SYRINGE SUB-Q (22:02)
[2019-07-20] MEDS: INSULIN DETEMIR 100 UNITS/ML 15 UNITS SUB-Q (22:03)
[2019-07-20] MEDS: ALBUTEROL SULFATE NEB 2.5 MG/0.5 ML INH INHALATION (22:09)
[2019-07-21] MEDS: HYDROMORPHONE HCL 2 MG TABLET PO ×4 (00:10→21:50)
[2019-07-21 06:00] VITALS: BP 125/67; PULSE 95; RESP 18; TEMP 36.3; O2SAT 96
[2019-07-21 06:19] LABS: Glucose Point of Care 173 (65-105)
[2019-07-21 08:02] LABS: Glucose Point of Care 162 (65-105)
[2019-07-21] MEDS: CYCLOBENZAPRINE HCL 10 MG TABLET PO ×3 (08:19→17:08)
[2019-07-21] MEDS: AZELASTINE HCL NASAL 0.1% 137 MCG/SPR 30 ML BTL 1 SPRAY NASAL ×2 (08:19→20:24)
[2019-07-21] MEDS: DULOXETINE 60 MG CAPSULE.DR PO (08:19)
[2019-07-21] MEDS: buPROPion HCL SR (12HR) 100 MG TABCR PO ×2 (08:19→17:08)
[2019-07-21] MEDS: PANTOPRAZOLE 40 MG TABLET PO (08:19)
[2019-07-21] MEDS: MONTELUKAST SODIUM 10 MG TABLET PO (08:20)
[2019-07-21] MEDS: BISMUTH SUBSALICYLATE 262 MG CHEWABLE TABLET 524 MG PO ×2 (08:20→12:47)
[2019-07-21] MEDS: GABAPENTIN 300 MG CAPSULE PO ×2 (08:20→17:08)
[2019-07-21] MEDS: LOSARTAN POTASSIUM 50 MG TABLET PO (08:20)
[2019-07-21] MEDS: FLUTICASONE PROPIONATE 0.05% NA SPR 16 GM BTL (*BKC) 1 SPRAY NASAL ×2 (08:20→17:07)
[2019-07-21 12:02] LABS: Glucose Point of Care 198 (65-105)
[2019-07-21 14:00] VITALS: BP 150/79; PULSE 99; RESP 20; TEMP 36.6; O2SAT 97
--- NOTE | 2019-07-21 16:14 | PM.IMPN ---
Progress Note: A&P Assessment and Plan (1) Recurrent falls while walking: Code(s): R29.6 - Repeated falls Status: Acute Assessment and Plan: Pain, morbesity, medications, deconditioning all contributors PT/OT working with Initiated fall precautions. She will need rehab on discharge and awaiting insur authorization (2) Dehydration: Code(s): E86.0 - Dehydration Status: Acute Assessment and Plan: Due to recent poor oral intake, given the ability that she is having hard time even getting up and about. She received cautious IV fluid rehydration initially. 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 Initiate sliding scale insulin, Accu-Cheks, and hypoglycemic protocol. fbs under 150 and recheck am (4) History of hypertension: Code(s): Z86.79 - Personal history of other diseases of the circulatory system Status: Acute Assessment and Plan: Blood pressures were reviewed and they seem to be well controlled without med initially . restarted losartan 07/20 when bp rising (5) COPD with asthma: Code(s): J44.9 - Chronic obstructive pulmonary disease, unspecified Status: Acute Assessment and Plan: No acute issues. Continue home respiratory regimen. Of inhalers (6) Closed compression fracture of L1 vertebra: Qualifiers: Encounter type: sequela Qualified Code(s): S32.010S - Wedge compression fracture of first lumbar vertebra, sequela Code(s): S32.010A - Wedge compression fracture of first lumbar vertebra, initial encounter for closed fracture Status: Acute Assessment and Plan: Recent L1 lumbar fracture Continue hydromorphone and cyclobenzaprine as needed. Celebrex is on hold given increasing creatinine. PT/OT consulted. Constipation secondary to immobility and narcotics.. Continue MiraLax daily (7) DVT prophylaxis: Code(s): Z29.9 - Encounter for prophylactic measures, unspecified Status: Acute Assessment and Plan: lovenox Subjective Date/time seen: 07/21/19 16:14 Interval history: Date of visit 07/21. Admitted 07/17 due to fall at home. Back pain only with movement. No cp or sob or edema. No gi/gu c/o. Large bms after laxative 07/19 and again 07/20 No bleeding. Exam Narrative: Exam Narrative: Blood pressure 150/78 pulse is 86 saturating 95% room air General: Well-developed, very well-nourished morbidly obese female supine in bed in no acute distress. HEENT: . Sclerae anicteric. Neck: Supple. Respiratory: Lungs are clear to auscultation bilaterally. Cardiovascular: Regular rate and rhythm with S1-S2. 2/6 soft systolic murmur best heard at the upper sternal border. Gastrointestinal: Abdomen is soft, morbidly obese, nontender, and nondistended with positive bowel sounds. Skin: Warm and dry. . Extremities: No cyanosis, clubbing, or significant edema. . Neurological: Alert. Cranial nerves 2-12 are grossly intact. No gross focal deficits Objective Data Vital Signs Vital Signs: Vital Signs - 24 hr 07/20/19 19:35 07/20/19 22:00 07/21/19 06:00 Temperature 36.4 C L 36.3 C L Pulse Rate 105 H 100 95 Respiratory Rate 20 20 18 Blood Pressure 123/77 125/67 Pulse Oximetry 94 97 96 07/21/19 14:00 Temperature 36.6 C Pulse Rate 99 Respiratory Rate 20 Blood Pressure 150/79 H Pulse Oximetry 97 Intake/Output Intake/Output: Intake & Output 07/18/19 07/19/19 07/20/19 07/21/19 23:59 23:59 23:59 23:59 Intake Total 3920 3290 1290 960 Output Total 1000 2
[2019-07-21 17:04] LABS: Glucose Point of Care 139 (65-105)
[2019-07-21] MEDS: LOVASTATIN 20 MG TABLET 40 MG PO (17:08)
[2019-07-21 20:00] VITALS: PULSE 99; RESP 20; O2SAT 97
[2019-07-21 20:09] LABS: Glucose Point of Care 229 (65-105)
[2019-07-21] MEDS: ALPRAZOLAM 0.5 MG TABLET PO (20:24)
[2019-07-21] MEDS: INSULIN DETEMIR 100 UNITS/ML 15 UNITS SUB-Q (20:24)
[2019-07-21] MEDS: ENOXAPARIN 40 MG/0.4 ML SYRINGE SUB-Q (20:24)
[2019-07-21] MEDS: BENZOCAINE/MENTHOL (*BKC) 18 EA LOZENGE 1 LOZENGE PO (21:51)
[2019-07-21] MEDS: ALBUTEROL SULFATE NEB 2.5 MG/0.5 ML INH INHALATION (21:59)
[2019-07-21 22:00] VITALS: BP 134/64; PULSE 102; PULSE 106; RESP 20; RESP 24; TEMP 36.6; O2SAT 96
[2019-07-21 22:04] VITALS: O2SAT 94
[2019-07-21 22:19] VITALS: PULSE 99; RESP 20
[2019-07-22 05:16] LABS: Basophils Absolute Auto 0.1 K/mm3 (0.0-0.1); Basophils Percent Auto 0.9 % (0.2-1.2); Eosinophils Absolute Auto 0.3 K/mm3 (0-0.3); Eosinophils Percent Auto 4.6 % (0-4.4); Hematocrit 34.8 % (37.0-47.0); Hemoglobin 11.4 g/dL (12.0-15.0); Immature Granulocyte Absolute 0.04 K/mm3 (0.00-0.031); Immature Granulocyte Percent A 0.6 % (0-0.5); Lymphocytes Absolute Auto 0.87 K/mm3 (0.9-3.2); Lymphocytes Percent Auto 13.7 % (18.3-44.2); Mean Corpuscular HGB Conc 32.8 g/dl (32-36); Mean Corpuscular Hemoglobin 30.8 pg (26-34); Mean Corpuscular Volume 94.1 fl (80-100); Mean Platelet Volume 10.4 fl (7.4-10.4); Monocytes Absolute Auto 0.8 K/mm3 (0.1-0.6); Monocytes Percent Auto 11.9 % (2.6-8.5); Neutrophils Absolute Auto 4.4 K/mm3 (1.3-6.7); Neutrophils Percent Auto 68.3 % (45.5-73.1); Platelet Count Result 331 k/mm3 (150-375); Red Cell Distribution Width 12.7 % (11.5-14.5); White Blood Count 6.4 K/mm3 (4.5-10.0)
[2019-07-22 05:44] LABS: Blood Urea Nitrogen 13 mg/dL (7-17); Calcium 8.9 mg/dL (8.4-10.2); Carbon Dioxide 33 mmol/L (22-30); Chloride 99 mmol/L (98-107); Estimated CRCL calculation 81 ml/min; Estimated Glomerular Filt Rate > 60; Glucose 169 mg/dL (65-105); Potassium 3.7 mmol/L (3.4-5.0); Sodium 139 mmol/L (137-145)
[2019-07-22 06:00] VITALS: BP 127/72; PULSE 97; RESP 22; TEMP 35.8; O2SAT 96
[2019-07-22] MEDS: PANTOPRAZOLE 40 MG TABLET PO (08:44)
[2019-07-22] MEDS: MONTELUKAST SODIUM 10 MG TABLET PO (08:44)
[2019-07-22] MEDS: LOSARTAN POTASSIUM 50 MG TABLET PO (08:44)
[2019-07-22] MEDS: CYCLOBENZAPRINE HCL 10 MG TABLET PO ×2 (08:45→13:16)
[2019-07-22] MEDS: GABAPENTIN 300 MG CAPSULE PO (08:45)
[2019-07-22] MEDS: FLUTICASONE PROPIONATE 0.05% NA SPR 16 GM BTL (*BKC) 1 SPRAY NASAL (08:45)
[2019-07-22] MEDS: buPROPion HCL SR (12HR) 100 MG TABCR PO (08:45)
[2019-07-22] MEDS: AZELASTINE HCL NASAL 0.1% 137 MCG/SPR 30 ML BTL 1 SPRAY NASAL (08:45)
[2019-07-22] MEDS: DULOXETINE 60 MG CAPSULE.DR PO (08:45)
[2019-07-22] MEDS: HYDROMORPHONE HCL 2 MG TABLET PO (09:46)
[2019-07-22 11:28] LABS: Glucose Point of Care 163 (65-105)
[2019-07-22 12:47] LABS: Glucose Point of Care 184 (65-105)
[2019-07-22 14:00] VITALS: BP 118/61; PULSE 99; RESP 16; TEMP 36.3; O2SAT 99
--- NOTE | 2019-07-23 17:47 | P.DS_ITS ---
DS: Diagnosis Admitting Diagnosis Admitting Diagnosis: Repeated falls Discharge Diagnosis (1) Recurrent falls while walking: Code(s): R29.6 - Repeated falls Status: Acute Assessment and Plan: * Pain, morbesity, medications, deconditioning all contributors * PT/OT worked with and will continue home health PT * insur did not give authorization for inpatient rehab at [facility] , patient will be at home with home health (2) Dehydration: Code(s): E86.0 - Dehydration Status: Acute Assessment and Plan: * Due to recent poor oral intake, given the ability that she is having hard time even getting up and about. * She received cautious IV fluid rehydration initially. 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 Which is Levemir 15 units HS * Used sliding scale while here. * Resume dulaglutide weekly injections at home (4) History of hypertension: Code(s): Z86.79 - Personal history of other diseases of the circulatory system Status: Acute Assessment and Plan: * Blood pressures were reviewed and they seem to be well controlled without med initially . * restarted losartan 07/20 when bp rising and will resume her usual losartan / thiazide at discharge (5) COPD with asthma: Code(s): J44.9 - Chronic obstructive pulmonary disease, unspecified Status: Acute Assessment and Plan: * No acute issues. * Continue home respiratory regimen. Of inhalers (6) Closed compression fracture of L1 vertebra: Qualifiers: Encounter type: sequela Qualified Code(s): S32.010S - Wedge compression fracture of first lumbar vertebra, sequela Code(s): S32.010A - Wedge compression fracture of first lumbar vertebra, initial encounter for closed fracture Status: Acute Assessment and Plan: * Recent L1 lumbar fracture * Continue hydromorphone and cyclobenzaprine as needed. * Celebrex was restarted on discharge. * PT/OT worked with patient here and will continue home health * Constipation secondary to immobility and narcotics.. Continue MiraLax bid on discharge * DS: Summary Hospital Course Hospital Course: 73-year-old hypertensive type 2 diabetic with recent lumbar compression fracture admitted with increasing pain weakness, constipation, and dehydration. She was rehydrated and given cathartics for with good results with her constipation and seen by OT and PT for treatment. Tried to get insurance authorization for rehab unit but they denied. She was discharged home with home health. She will follow up with primary care Time Spent with Patient Time attestation: Total time spent providing and/or coordinating discharge services:35 Exam Narrative: Exam Narrative: Condition on discharge Blood pressure 118/78 pulse is 86 afebrile Lungs were clear CV regular rate rhythm Abdomen soft nontender obese Extremities without edema She was ambulating with a walker independently and taken a diet well. Discharge Plan Discharge Attending physician on
--- NOTE | 2019-07-23 17:47 | PM.DS ---
DS: Diagnosis Admitting Diagnosis Admitting Diagnosis: Repeated falls Discharge Diagnosis (1) Recurrent falls while walking: Code(s): R29.6 - Repeated falls Status: Acute Assessment and Plan: Pain, morbesity, medications, deconditioning all contributors PT/OT worked with and will continue home health PT insur did not give authorization for inpatient rehab at [facility] , patient will be at home with home health (2) Dehydration: Code(s): E86.0 - Dehydration Status: Acute Assessment and Plan: Due to recent poor oral intake, given the ability that she is having hard time even getting up and about. She received cautious IV fluid rehydration initially. And as BUN down to 19 07/19 and discontinued IV fluids and did well BUN 13 and creatinine 0.7 the day of discharge (3) Type 2 diabetes mellitus without complications: Qualifiers: Diabetes mellitus snf insulin use: unspecified snf insulin use status Qualified Code(s): E11.9 - Type 2 diabetes mellitus without complications Code(s): E11.9 - Type 2 diabetes mellitus without complications Status: Acute Assessment and Plan: Continue basal insulin. Which is Levemir 15 units HS Used sliding scale while here. Resume dulaglutide weekly injections at home (4) History of hypertension: Code(s): Z86.79 - Personal history of other diseases of the circulatory system Status: Acute Assessment and Plan: Blood pressures were reviewed and they seem to be well controlled without med initially . restarted losartan 07/20 when bp rising and will resume her usual losartan / thiazide at discharge (5) COPD with asthma: Code(s): J44.9 - Chronic obstructive pulmonary disease, unspecified Status: Acute Assessment and Plan: No acute issues. Continue home respiratory regimen. Of inhalers (6) Closed compression fracture of L1 vertebra: Qualifiers: Encounter type: sequela Qualified Code(s): S32.010S - Wedge compression fracture of first lumbar vertebra, sequela Code(s): S32.010A - Wedge compression fracture of first lumbar vertebra, initial encounter for closed fracture Status: Acute Assessment and Plan: Recent L1 lumbar fracture Continue hydromorphone and cyclobenzaprine as needed. Celebrex was restarted on discharge. PT/OT worked with patient here and will continue home health Constipation secondary to immobility and narcotics.. Continue MiraLax bid on discharge DS: Summary Hospital Course Hospital Course: 73-year-old hypertensive type 2 diabetic with recent lumbar compression fracture admitted with increasing pain weakness, constipation, and dehydration. She was rehydrated and given cathartics for with good results with her constipation and seen by OT and PT for treatment. Tried to get insurance authorization for rehab unit but they denied. She was discharged home with home health. She will follow up with primary care Time Spent with Patient Time attestation: Total time spent providing and/or coordinating discharge services:35 Exam Narrative: Exam Narrative: Condition on discharge Blood pressure 118/78 pulse is 86 afebrile Lungs were clear CV regular rate rhythm Abdomen soft nontender obese Extremities without edema She was ambulating with a walker independently and taken a diet well. Discharge Plan Discharge Attending physician on discharge: Dov Hall Discharging Clinician: Dov Hall Patient Disposition: Home Health Service Diet: diabetic and low sodium Discharge Instructions: Per Care Coordination: [facility] will contact you prior to their first visit. [facility] will follow for PT/OT eval and treat. [facility] can be reached at [phone]. Patient Instructions: Antibiotic Form Stand Alone Forms: General Discharge Information
== END 2019-07-22 16:00 | disposition home health service (06) ==
LOC: ANHED 18:42 → ANH2MED 07-18 02:35
PROVIDERS: Physician Assistant; Admitting Provider Internal Medicine; Emergency Provider Emergency Medicine; PCP Family Medicine; Visit Provider Internal Medicine
DX: E86.0 Dehydration (principal); K59.03 Drug induced constipation; T40.605A Adverse effect of unspecified narcotics, initial encounter; S32.010A Wedge compression fracture of first lumbar vertebra, initial encounter for closed fracture; W07.XXXA Fall from chair, initial encounter; R29.6 Repeated falls; E11.22 Type 2 diabetes mellitus with diabetic chronic kidney disease; I12.9 Hypertensive chronic kidney disease with stage 1 through stage 4 chronic kidney disease, or unspecified chronic kidney disease; N18.3 Chronic kidney disease, stage 3 (moderate); E66.01 Morbid (severe) obesity due to excess calories; Z68.43 Body mass index [BMI] 50.0-59.9, adult; I35.0 Nonrheumatic aortic (valve) stenosis; J44.9 Chronic obstructive pulmonary disease, unspecified; E78.2 Mixed hyperlipidemia; F41.9 Anxiety disorder, unspecified; F32.9 Major depressive disorder, single episode, unspecified; Z79.4 Long term (current) use of insulin; Z79.899 Other long term (current) drug therapy; Z96.653 Presence of artificial knee joint, bilateral; Z87.891 Personal history of nicotine dependence
CPT/HCPCS: 36415; 51701; 70450; 71046; 72125; 73030; 74018; 80048; 80053; 81001; 82550; 83880; 85025; 85027; 94640; 96360; 96361; 96372; 97110; 97116; 97161; 97165; 97530; 97535; 99285; A9270; G0378; J1650; J1815; J7030

== ENCOUNTER 2020-07-06 13:33 | Outpatient (CLI) | payer MEDICARE, SELFPAY ==
--- NOTE | ~2020-07-06 | US_ITS ---
EXAMINATION: US pelvic complete DATE: 07/06/2020 12:56 INDICATION: Right ovarian mass. TECHNIQUE: Multiple transabdominal sonographic images of the pelvis were obtained. COMPARISON: CT abdomen and pelvis 07/06/2020 FINDINGS: The uterus measures 7.1 x 4.8 x 3.9 cm. The endometrial complex is not well-visualized. There is a 1. 5 cm calcified mass in the uterus, consistent with a fibroid. There is no free fluid in the pelvis. T here is a 8.5 x 7.7 x 6.7 cm cystic mass with peripheral hypoechoic echoes and thick septum in the ri ght adnexa with vascular flow. The left ovary is not visualized. IMPRESSION: 1. 8.5 cm cystic mass in right adnexa suspicious for neoplasm. Consider surgical evaluation. Reviewed, dictated and finalized at location A. [employer] LOADER IMPRESSION: 1. 8.5 cm cystic mass in right adnexa suspicious for neoplasm. Consider surgica l evaluation.
--- NOTE | ~2020-07-06 | CT_ITS ---
EXAMINATION: CT abdomen pelvis w con DATE: 07/06/2020 10:28 INDICATION: Generalized abdominal pain. TECHNIQUE: Computed tomography (CT) of the abdomen and pelvis was performed with 100 mL Omnipaque 350 intravenous contrast. Automated exposure control and iterative reconstruction technique were employe d. The dose-length product was 1504.77 mGy-cm. COMPARISON: CT abdomen and pelvis 05/04/2009, CT lumbar spine 07/07/19 FINDINGS: The visualized portions of the lung bases demonstrate minimal atelectasis. No pleural effus ion. The heart size is normal. There are coronary artery calcifications. There are calcifications of the aortic valve. No pericardial effusion. Calcifications in the liver and spleen are consistent with old granulomatous disease. There are changes of cholecystectomy. The pancreas and adrenal glands are normal. There are cysts in the kidneys measuring up to 2.8 cm on the right. There is a calcified fib roid in the uterus. There is an 8.6 cm cystic mass with septations in the right ovary. There are no d ilated loops of bowel. The appendix is normal. There are no pathologically enlarged lymph nodes. Ther e is no free intraperitoneal fluid. There is a chronic 4.3 x 2.8 cm subcutaneous partially calcified mass at the umbilicus. There is a chronic burst fracture of L1. There is severe lumbar spondylosis. IMPRESSION: 1. 8.6 cm cystic mass with septations in right ovary, worsened from 2.7 cm on 05/04/09, suspicious fo r neoplasm. Consider surgical evaluation. 2. Subcutaneous mass at the umbilicus, stable in size from 05/04/09, likely scarring. Desmoid is less likely. Reviewed, dictated and finalized at location A. [employer] IMPRESSION: 1. 8.6 cm cystic mass with septations in right ovary, worsened from 2.7 cm on 1 07/04/08, suspicious for neoplasm. Consider surgical evaluation. 2. Subcutaneous mass at the umbilicus, stable in size from 05/04/09, likely sca rring. Desmoid is less likely.
--- NOTE | ~2020-07-06 | US_ITS ---
EXAMINATION: US abdomen complete DATE: 07/06/2020 12:58 INDICATION: Pelvic mass. TECHNIQUE: Multiple grayscale and Doppler ultrasound images of the abdomen were obtained. COMPARISON: CT abdomen and pelvis 07/06/2020 FINDINGS: The visualized portion of the head of the pancreas is normal. There is diffuse hepatic stea tosis. The gallbladder is absent. The common duct is normal and measures 6 mm. The inferior vena cava and abdominal aorta obscured by obesity and bowel gas. The kidneys are normal in size. There is a 3. 1 cm cyst in left kidney. Calcifications in the spleen are consistent with old granulomatous disease. IMPRESSION: 1. Diffuse hepatic steatosis. Reviewed, dictated and finalized at location A. 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
[2020-07-06 10:25] LABS: Estimated Glomerular Filt Rate > 60
--- NOTE | 2020-07-06 10:29 | ECG_ITS ---
Measurements Intervals [place] Rate: 107 P: -16 TN: 198 QRS: -46 QRSD: 145 T: 110 QT: 372 QTc: 497 Interpretive Statements SINUS TACHYCARDIA LEFT BUNDLE BRANCH BLOCK EXTENSIVE ANTERIOR INFARCT OR DUE TO LBBB INFERIOR INFARCT OR DUE TO LBBB BASELINE ARTIFACT- I, II, III, AVR, AVL ABNORMAL ECG Electronically Signed On 07-06-2020 10:48:59 RESEARCH PROJECT MANAGER by Zaire Bonilla D.O.
[2020-07-06 11:39] LABS: Basophils Absolute Auto 0.1 K/mm3 (0.0-0.1); Basophils Percent Auto 0.6 % (0.2-1.2); Eosinophils Absolute Auto 0.2 K/mm3 (0-0.3); Eosinophils Percent Auto 2.2 % (0-4.4); Hematocrit 41.1 % (37.0-47.0); Hemoglobin 14.1 g/dL (12.0-15.0); Immature Granulocyte Absolute 0.03 K/mm3 (0.00-0.031); Immature Granulocyte Percent A 0.3 % (0-0.5); Lymphocytes Absolute Auto 0.86 K/mm3 (0.9-3.2); Lymphocytes Percent Auto 9.7 % (18.3-44.2); Mean Corpuscular HGB Conc 34.3 g/dl (32-36); Mean Corpuscular Hemoglobin 31.8 pg (26-34); Mean Corpuscular Volume 92.6 fl (80-100); Mean Platelet Volume 10.6 fl (7.4-10.4); Monocytes Absolute Auto 0.5 K/mm3 (0.1-0.6); Monocytes Percent Auto 6.1 % (2.6-8.5); Neutrophils Absolute Auto 7.2 K/mm3 (1.3-6.7); Neutrophils Percent Auto 81.1 % (45.5-73.1); Platelet Count Result 261 k/mm3 (150-375); Red Blood Count 4.44 M/mm3 (4.2-5.4); Red Cell Distribution Width 12.8 % (11.5-14.5); White Blood Count 8.9 K/mm3 (4.5-10.0)
[2020-07-06 11:50] LABS: Potassium 4.5 mmol/L (3.4-5.0)
[2020-07-06 12:04] LABS: Alanine Aminotransferase 18 U/L (4-35); Albumin Level 3.9 g/dL (3.5-5.1); Alkaline Phosphatase 75 U/L (38-126); Anion Gap 9 mmol/L (8-16); Aspartate Amino Transferase 22 U/L (14-36); Bilirubin,Total 0.8 mg/dL (0.2-1.3); Blood Urea Nitrogen 20 mg/dL (7-17); Calcium 9.3 mg/dL (8.4-10.2); Carbon Dioxide 28 mmol/L (22-30); Chloride 99 mmol/L (98-107); Estimated Glomerular Filt Rate > 60; Glucose 169 mg/dL (65-105); Sodium 136 mmol/L (137-145)
[2020-07-09 05:13] LABS: CA-125 9 U/mL (<35)
== END 2020-07-06 13:34 | disposition home or self-care (01) ==
PROVIDERS: PCP Family Medicine; Visit Provider Family Medicine
DX: R00.0 Tachycardia, unspecified (principal); R10.84 Generalized abdominal pain; N83.8 Other noninflammatory disorders of ovary, fallopian tube and broad ligament; K76.0 Fatty (change of) liver, not elsewhere classified; I44.7 Left bundle-branch block, unspecified; N83.201 Unspecified ovarian cyst, right side
CPT/HCPCS: 74177; 76700; 76856; 80053; 85025; 86304; 93005; Q9967

== ENCOUNTER 2020-10-15 07:21 | Outpatient (CLI) | payer MEDICARE, SELFPAY ==
--- NOTE | ~2020-10-15 | NM_ITS ---
EXAMINATION: NM kate stress w perfusion DATE: 10/15/2020 12:40 INDICATION: Dyspnea TECHNIQUE: Rest images were obtained following intravenous administration of 9.5 mCi Tc99m tetrofosmi n (Myoview). The patient was infused intravenously with Lexiscan (Regadenoson). Then, 30.1 mCi Tc99m tetrofosmin (Myoview) was administered intravenously, and stress images were obtained. Data was recon structed into short axis and horizontal and vertical long axis SPECT images. Gated SPECT images were also obtained. COMPARISON: None. FINDINGS: Small mild fixed perfusion defect involving the apical and apical septal segments consisten t with infarct. No reversible ischemia. There is normal left ventricular chamber size, wall motion a nd ejection fraction. Left ventricular ejection fraction measures 67%. IMPRESSION: 1. Small mild infarct at the apical and apical septal segments. 2. Left ventricular ejection fraction measuring 67%. Reviewed, dictated and finalized at location A.
--- NOTE | 2020-10-15 07:51 | ECHO_ITS ---
Patient Info Name: Sugey Roy Age: 75 years : 1945 Gender: Female Ht: 63 in Wt: 278 lbs BSA: 2.45 m2 HR: 100 bpm BP: 138 / 83 mmHg Heart Rhythm: Sinus Rhythm Exam Date: 10/15/2020 8:04 AM Exam Location: [facility] Patient Status: Outpatient Admit Date: 10/15/2020 Staff Ordering Physician: Zaire Bonilla DO Attending Provider: Zaire Bonilla DO Referring Physician: Chad WHITMAN; Exam Type: CA echo doppler color flow Study Info Indications I35.0 - Nonrheumatic aortic (valve) stenosis Complete two-dimensional, color flow and Doppler transthoracic echocardiogram is performed. Summary 1. Complete two-dimensional, color flow and Doppler transthoracic echocardiogram is performed. 2. Left ventricular chamber dimension is normal. 3. Left ventricular systolic function is normal, estimated at 60-65%. 4. There is moderately increased left ventricular wall thickness. 5. The left ventricular diastolic function is grade I diastolic dysfunction. 6. E/e' 25 is elevated. 7. Left atrial chamber dimension is moderately enlarged. 8. There is severe aortic valve sclerosis. 9. There is trace aortic valve regurgitation. 10. There is moderate to severe aortic valve stenosis based on a peak velocity of 375 cm/s, mean gradient of 27 mmHg, and aortic valve area of 0.7 cm2. 11. The mitral valve has severely calcified annulus. 12. There is mild mitral valve regurgitation. 13. Moderate pulmonary hypertension, estimated pulmonary arterial systolic pressure is 57 mmHg. Left Ventricle E/e' 25 is elevated. Left ventricular chamber dimension is normal. Left ventricular systolic function is normal, estimated at 60-65%. There is moderately increased left ventricular wall thickness. The left ventricular diastolic function is grade I diastolic dysfunction. Right Ventricle Right ventricular chamber dimension is normal. Right ventricular systolic function is normal. Left Atria Left atrial chamber dimension is moderately enlarged. Right Atria Right atrial chamber dimension is normal. Aortic Valve There is moderate to severe aortic valve stenosis based on a peak velocity of 375 cm/s, mean gradient of 27 mmHg, and aortic valve area of 0.7 cm2. The aortic valve is probable trileaflet. There is severe aortic valve sclerosis. There is trace aortic valve regurgitation. Pulmonic Valve There is no pulmonic regurgitation. Mitral Valve The mitral valve has severely calcified annulus. There is no mitral valve stenosis. There is mild mitral valve regurgitation. Tricuspid Valve There is no tricuspid valve regurgitation. Moderate pulmonary hypertension, estimated pulmonary arterial systolic pressure is 57 mmHg. Pericardium/Pleural There is no pericardial effusion. Inferior Vena Cava Normal inferior vena cava with >50% collapse upon inspiration consistent with normal right atrial pressure, 5 mmHg. Aorta The aortic root size at the sinus of Valsalva is normal. Left Ventricular Outflow Tract Name Value Normal LVOT 2D LVOT Diameter 2.0 cm LVOT Doppler LVOT Peak Gradient 3 mmHg LVOT Mean
--- NOTE | 2020-10-15 07:51 | EST_ITS ---
Patient Info Name: Sugey Roy Age: 75 years : 1945 Gender: Female Ht: 60 in Wt: 290 lbs BSA: 2.45 m2 Exam Date: 10/15/2020 9:56 AM Exam Location: [facility] Stress Patient Status: Outpatient Admit Date: 10/15/2020 Staff Ordering Physician: Zaire Bonilla DO Attending Provider: Zaire Bonilla DO Exercise Technologist: Lesia Sky RDCS Exam Type: CA stress kate w NM Study Info Indications R06.00 - Dyspnea, unspecified A regadenoson stress test was performed. Summary 1. 1. Inconclusive lexiscan stress test for ischemic ST changes by ECG criteria due to baseline LBBB. 2. 2. Stable hemodynamics throughout the test. 3. 3. Nuclear scan to follow and will be reported separately. Please correlate with it. 4. 4. Patient informed of the above results. Protocol: Lexiscan Stress ECG Details Stage: REST Duration (min): 10 min : 1 sec HR (bpm): 98 SBP (mmHg): 148 DBP (mmHg): 76 Stage: REST Duration (min): 16 min : 38 sec HR (bpm): 97 SBP (mmHg): 148 DBP (mmHg): 76 Stage: STAGE 1 Duration (min): 0 min : 59 sec HR (bpm): 104 SBP (mmHg): 148 DBP (mmHg): 76 Stage: RECOVERY Duration (min): 1 min : 0 sec HR (bpm): 109 SBP (mmHg): 148 DBP (mmHg): 76 Stage: RECOVERY Duration (min): 2 min : 0 sec HR (bpm): 107 SBP (mmHg): 113 DBP (mmHg): 61 Stage: RECOVERY Duration (min): 3 min : 0 sec HR (bpm): 106 SBP (mmHg): 121 DBP (mmHg): 63 Stage: RECOVERY Duration (min): 4 min : 0 sec HR (bpm): 107 SBP (mmHg): 121 DBP (mmHg): 63 Stage: RECOVERY Duration (min): 5 min : 0 sec HR (bpm): 106 SBP (mmHg): 121 DBP (mmHg): 63 Stage: RECOVERY Duration (min): 6 min : 0 sec HR (bpm): 105 SBP (mmHg): 121 DBP (mmHg): 71 Stage: RECOVERY Duration (min): 6 min : 53 sec HR (bpm): 104 SBP (mmHg): 122 DBP (mmHg): 72 Rest HR: 97 bpm Peak HR: 109 bpm Rest Sys BP: 148 mmHg Peak Sys BP: 122 mmHg Max Pred HR: 144 bpm % Max Pred HR: 76 % Target HR: 122 bpm Max RPP: 13,298 bpm*mmHg Termination Reason: Completed protocol Cardiac Symptoms: Shortness of breath Total Time: 1 min : 0 sec Rest Donaldson BP: 76 mmHg Peak Donaldson BP: 72 mmHg Total Dose: 0.4 mg Resting ECG Sinus rhythm, LBBB. Stress ECG No ST changes. Arrhythmias None. Report Signatures
== END 2020-10-15 07:22 | disposition home or self-care (01) ==
PROVIDERS: PCP Family Medicine; Visit Provider Internal Medicine Cardiovascular Disease
DX: I35.0 Nonrheumatic aortic (valve) stenosis (principal); R06.00 Dyspnea, unspecified; E66.9 Obesity, unspecified; I25.2 Old myocardial infarction; I27.20 Pulmonary hypertension, unspecified
CPT/HCPCS: 78452; 93017; 93306; A9502; J2785